=== PATIENT | female | born 1930 | race Caucasian/White ===

== ENCOUNTER → 2017-11-08 | Outpatient (CLI) | payer MEDICARE, OTHER ==
[~2017-11-08] MED LIST: ACTONEL5 MG PO; BENICAR5 MG PO; CALCIUM 500 MG1 EACH PO; CIPRO500 MG PO; COZAAR50 MG PO; FERROUS SULFAT325 MG PO; LO-DOSE ASPIRIN81 M1 PO; MACROBID100 MG PO; PROBIOTIC1 EAC1 PO; TRAMADOL HCL50 MG PO; VITAMIN B12-FO1 EACH PO; VITAMIN D2000 UNIT PO; VITAMIN E400 UNI6 PO; ZOFRAN4 MG PO
== END | disposition home or self-care (01) ==
LOC: CDC 10:42
DX: Z01.810 Encounter for preprocedural cardiovascular examination (principal); Z93.3 Colostomy status; I44.0 Atrioventricular block, first degree
CPT/HCPCS: 93000

== ENCOUNTER 2017-11-24 21:52 | Inpatient (IN) | payer OTHER ==
[~2017-11-24] VITALS: Ht 157.5 cm; Wt 54.5 kg
[2017-11-25 05:48] VITALS: BP 148/69
[2017-11-25 16:20] VITALS: BP 138/67
[2017-11-25 18:37] LABS: MCH 26.5 PG (29.0-34.0); MCHC 32.2 G/DL (30.0-36.0); MCV 82.3 FL (83-99); PLATELET COUNT 171 K/uL (156-360); RBC DIS.WIDTH-CV 13.6 % (11.8-14.6); RBC DIS.WIDTH-SD 40.8 % (39-53); RED BLOOD COUNT 3.89 M/uL (3.80-5.20); WHITE BLOOD COUNT 9.8 K/uL (4.1-10.2)
[2017-11-25 18:39] LABS: HEMOGLOBIN 10.3 G/DL (11.9-15.5)
[2017-11-25 18:59] LABS: TROP-I INTERPRETATION NEGATIVE; TROPONIN-I < 0.01 ng/mL (0.0-0.30)
[2017-11-25 21:09] VITALS: BP 128/65
[2017-11-25 23:24] VITALS: BP 114/61
[2017-11-26 04:55] VITALS: BP 116/55
[2017-11-26 05:52] LABS: HEMATOCRIT 32.4 % (36.0-46.0); HEMOGLOBIN 10.1 G/DL (11.9-15.5); MCH 26.2 PG (29.0-34.0); MCHC 31.2 G/DL (30.0-36.0); MCV 84.2 FL (83-99); PLATELET COUNT 185 K/uL (156-360); RBC DIS.WIDTH-CV 13.8 % (11.8-14.6); RBC DIS.WIDTH-SD 42.4 % (39-53); RED BLOOD COUNT 3.85 M/uL (3.80-5.20)
[2017-11-26 06:10] LABS: TROP-I INTERPRETATION NEGATIVE; TROPONIN-I < 0.01 ng/mL (0.0-0.30)
[2017-11-26 06:23] LABS: CHLORIDE 102 MEQ/L (99-109); CREATININE 0.7 MG/DL (0.6-1.3); GFR ESTIMATE (CALCULATED) > 59 mL/min/; GLUCOSE 130 mg/dL (70-99); MAGNESIUM 1.7 mg/dl (1.3-2.7); PHOSPHORUS 2.3 mg/dL (2.5-4.9); SODIUM 137 MEQ/L (136-147); UREA NITROGEN (BUN) 10 mg/dL (9-23)
[2017-11-26 08:12] VITALS: BP 115/54
[2017-11-26 11:47] VITALS: BP 110/54
[2017-11-26 16:22] VITALS: BP 123/53
[2017-11-26 19:25] VITALS: BP 132/59
[2017-11-27] VITALS (7 sets, daily range): BP systolic 117–143; BP diastolic 61–88
[2017-11-27 05:11] LABS: HEMATOCRIT 33.1 % (36.0-46.0); HEMOGLOBIN 10.3 G/DL (11.9-15.5); MCH 26.1 PG (29.0-34.0); MCHC 31.1 G/DL (30.0-36.0); MCV 83.8 FL (83-99); PLATELET COUNT 198 K/uL (156-360); RBC DIS.WIDTH-CV 13.9 % (11.8-14.6); RBC DIS.WIDTH-SD 43.3 % (39-53); RED BLOOD COUNT 3.95 M/uL (3.80-5.20); WHITE BLOOD COUNT 8.3 K/uL (4.1-10.2)
[2017-11-27 05:49] LABS: CHLORIDE 100 MEQ/L (99-109); CREATININE 0.6 MG/DL (0.6-1.3); GFR ESTIMATE (CALCULATED) > 59 mL/min/; GLUCOSE 125 mg/dL (70-99); POTASSIUM 3.8 MEQ/L (3.7-5.4); SODIUM 133 MEQ/L (136-147); UREA NITROGEN (BUN) 7 mg/dL (9-23)
[2017-11-28 03:15] VITALS: BP 170/71
[2017-11-28 05:19] LABS: HEMATOCRIT 29.9 % (36.0-46.0); HEMOGLOBIN 9.4 G/DL (11.9-15.5); MCHC 31.4 G/DL (30.0-36.0); MCV 82.8 FL (83-99); PLATELET COUNT 164 K/uL (156-360); RBC DIS.WIDTH-CV 14.1 % (11.8-14.6); RBC DIS.WIDTH-SD 42.8 % (39-53); RED BLOOD COUNT 3.61 M/uL (3.80-5.20); WHITE BLOOD COUNT 5.3 K/uL (4.1-10.2)
[2017-11-28 07:12] VITALS: BP 149/76
[2017-11-28 07:13] LABS: CHLORIDE 101 MEQ/L (99-109); CREATININE 0.6 MG/DL (0.6-1.3); GFR ESTIMATE (CALCULATED) > 59 mL/min/; GLUCOSE 117 mg/dL (70-99); POTASSIUM 3.6 MEQ/L (3.7-5.4); SODIUM 134 MEQ/L (136-147); UREA NITROGEN (BUN) 8 mg/dL (9-23)
[2017-11-28 11:01] VITALS: BP 146/69
[2017-11-28 15:30] VITALS: BP 143/72
[2017-11-28 19:00] VITALS: BP 140/66
[2017-11-28 23:30] VITALS: BP 139/75
[2017-11-29 03:00] VITALS: BP 154/72
[2017-11-29 05:52] LABS: HEMATOCRIT 30.6 % (36.0-46.0); HEMOGLOBIN 9.9 G/DL (11.9-15.5); MCH 26.4 PG (29.0-34.0); MCHC 32.4 G/DL (30.0-36.0); MCV 81.6 FL (83-99); PLATELET COUNT 208 K/uL (156-360); RBC DIS.WIDTH-CV 13.8 % (11.8-14.6); RBC DIS.WIDTH-SD 40.9 % (39-53); RED BLOOD COUNT 3.75 M/uL (3.80-5.20)
[2017-11-29 06:40] LABS: CHLORIDE 102 MEQ/L (99-109); CREATININE 0.5 MG/DL (0.6-1.3); GFR ESTIMATE (CALCULATED) > 59 mL/min/; GLUCOSE 110 mg/dL (70-99); MAGNESIUM 1.5 mg/dl (1.3-2.7); POTASSIUM 3.2 MEQ/L (3.7-5.4); SODIUM 138 MEQ/L (136-147); UREA NITROGEN (BUN) 7 mg/dL (9-23)
[2017-11-29 06:41] LABS: PHOSPHORUS 1.2 mg/dL (2.5-4.9)
[2017-11-29 08:00] VITALS: BP 133/70
[2017-11-29 11:40] VITALS: BP 128/70
[2017-11-29 12:54] LABS: APPEARANCE CLEAR ((CLEAR)); BILIRUBIN NEGATIVE; BLOOD SMALL; COLOR STRAW ((YELLOW)); GLUCOSE (STRIP) NEGATIVE; KETONES NEGATIVE; LEUKOCYTES NEGATIVE; NITRITE NEGATIVE; PROTEIN (STRIP) NEGATIVE; SPECIFIC GRAVITY 1.006 (1.000-1.030); UROBILINOGEN 0.2 MG/DL (0.2-1.0)
[2017-11-29 12:59] LABS: BACTERIA RARE /HPF; EPITHELIAL CELLS NONE SEEN /HPF; MUCUS TRACE /LPF; RED BLOOD CELLS 0-5 /HPF (0-5); UCUL ADDED? YES
[2017-11-29 15:00] VITALS: BP 128/87
[2017-11-29 19:45] VITALS: BP 156/73
[2017-11-30 03:03] VITALS: BP 143/67
[2017-11-30 06:22] LABS: HEMATOCRIT 28.6 % (36.0-46.0); HEMOGLOBIN 9.3 G/DL (11.9-15.5); MCH 26.2 PG (29.0-34.0); MCHC 32.5 G/DL (30.0-36.0); MCV 80.6 FL (83-99); PLATELET COUNT 216 K/uL (156-360); RBC DIS.WIDTH-CV 13.8 % (11.8-14.6); RBC DIS.WIDTH-SD 40.4 % (39-53); RED BLOOD COUNT 3.55 M/uL (3.80-5.20); WHITE BLOOD COUNT 6.1 K/uL (4.1-10.2)
[2017-11-30 06:31] LABS: CHLORIDE 100 MEQ/L (99-109); CREATININE 0.6 MG/DL (0.6-1.3); GFR ESTIMATE (CALCULATED) > 59 mL/min/; GLUCOSE 113 mg/dL (70-99); POTASSIUM 3.1 MEQ/L (3.7-5.4); SODIUM 136 MEQ/L (136-147); UREA NITROGEN (BUN) 6 mg/dL (9-23)
[2017-11-30 06:32] LABS: PHOSPHORUS 2.7 mg/dL (2.5-4.9)
[2017-11-30 07:45] VITALS: BP 131/58
[2017-11-30 12:00] VITALS: BP 128/70
[2017-11-30 15:30] VITALS: BP 135/72
[2017-11-30 18:36] VITALS: BP 130/61
[2017-11-30 23:06] VITALS: BP 159/70
[2017-12-01 03:36] VITALS: BP 128/58
[2017-12-01 07:17] LABS: MCH 26.3 PG (29.0-34.0); MCHC 32.1 G/DL (30.0-36.0); MCV 81.9 FL (83-99); PLATELET COUNT 213 K/uL (156-360); RBC DIS.WIDTH-SD 41.5 % (39-53); RED BLOOD COUNT 3.42 M/uL (3.80-5.20); WHITE BLOOD COUNT 6.6 K/uL (4.1-10.2)
[2017-12-01 08:11] LABS: CHLORIDE 102 MEQ/L (99-109); CREATININE 0.5 MG/DL (0.6-1.3); GFR ESTIMATE (CALCULATED) > 59 mL/min/; GLUCOSE 110 mg/dL (70-99); SODIUM 133 MEQ/L (136-147); UREA NITROGEN (BUN) 8 mg/dL (9-23)
[2017-12-01 08:40] VITALS: BP 115/56
[2017-12-01 12:54] VITALS: BP 106/58
[2017-12-01 16:47] VITALS: BP 110/54
[2017-12-01 19:55] VITALS: BP 112/63
[2017-12-01 23:43] VITALS: BP 135/61
[2017-12-02 05:49] LABS: HEMATOCRIT 27.1 % (36.0-46.0); HEMOGLOBIN 8.7 G/DL (11.9-15.5); MCHC 32.1 G/DL (30.0-36.0); MCV 80.9 FL (83-99); PLATELET COUNT 230 K/uL (156-360); RBC DIS.WIDTH-SD 41.1 % (39-53); RED BLOOD COUNT 3.35 M/uL (3.80-5.20)
[2017-12-02 06:18] LABS: CHLORIDE 102 MEQ/L (99-109); CREATININE 0.5 MG/DL (0.6-1.3); GFR ESTIMATE (CALCULATED) > 59 mL/min/; GLUCOSE 105 mg/dL (70-99); SODIUM 136 MEQ/L (136-147); UREA NITROGEN (BUN) 8 mg/dL (9-23)
[2017-12-02 08:25] VITALS: BP 115/58
[2017-12-02 11:41] VITALS: BP 99/52
[2017-12-02] MEDS ORDERED: TRAMADOL HCL50 MG PO (12:43)
== END 2017-12-02 16:05 | DRG 331 ==
LOC: ENRESERV 21:52 → CANRESERV 21:52 → 4EAST 11-25 05:18 → 2SOUTH 11-25 05:18 → ENRESERV 11-25 11:35 → 2SOUTH 11-25 15:48 → 4EAST 11-25 16:08 → 2SOUTH 11-25 16:08 → 4EAST 11-29 15:41 → ENRESERV 11-29 15:41 → 4EAST 11-29 15:41 → ENRESERV 11-30 12:54 → 3EAST 11-30 18:18 → ENPENDDIS 12-02 → 3EAST 12-02 16:05
PROVIDERS: Physician Assistant; Surgery; Thoracic Surgery (Cardiothoracic Vascular Surgery)
PROC: 0DSP0ZZ Reposition Rectum, Open Approach (ICD-10-PCS; principal; 2017-11-25)
PROC: 0DSL0ZZ Reposition Transverse Colon, Open Approach (ICD-10-PCS; principal; 2017-11-25)
PROC: 0DJD8ZZ Inspection of Lower Intestinal Tract, Via Natural or Artificial Opening Endoscopic (ICD-10-PCS; principal; 2017-11-25)
DX: D12.7 Benign neoplasm of rectosigmoid junction (principal); K62.1 Rectal polyp; K66.0 Peritoneal adhesions (postprocedural) (postinfection); M19.90 Unspecified osteoarthritis, unspecified site; I10 Essential (primary) hypertension; Z43.3 Encounter for attention to colostomy; Z85.42 Personal history of malignant neoplasm of other parts of uterus; Z85.820 Personal history of malignant melanoma of skin; Z88.6 Allergy status to analgesic agent; Z88.0 Allergy status to penicillin
CPT/HCPCS: 71045; 80048; 81003; 82948; 83735; 84100; 84484; 85027; 86850; 86900; 86901; 86920; 87086; 87493; 88304; 94799; J0330; J0692; J1100; J1170; J1335; J1644; J2001; J2270; J2405; J2710; J2795; J3010; J3475; J3480; J7040; J7050; Q0175; S0020

== ENCOUNTER 2017-12-10 10:07 | Emergency (ER) | payer OTHER ==
[~2017-12-10] VITALS: Ht 157.5 cm; Wt 51.9 kg
[2017-12-10 10:45] LABS: BASOPHIL (%) 0.5 % (0-1); EOSINOPHIL (%) 3.5 % (0-5); EOSINOPHIL COUNT 0.2 K/uL (0-0.3); HEMOGLOBIN 9.5 G/DL (11.9-15.5); IMMATURE GRANULOCYTE (%) 0.5 % (0.0-0.7); LYMPHOCYTE (%) 24.4 % (15-42); LYMPHOCYTE COUNT 1.5 K/uL (1.0-2.8); MCH 26.2 PG (29.0-34.0); MCHC 31.7 G/DL (30.0-36.0); MCV 82.9 FL (83-99); MONOCYTE (%) 13.2 % (3-12); MONOCYTE COUNT 0.8 K/uL (0-0.8); NEUTROPHIL (%) 57.9 % (45-76); NEUTROPHIL COUNT 3.5 K/uL (1.8-6.4); RBC DIS.WIDTH-CV 14.3 % (11.8-14.6); RBC DIS.WIDTH-SD 43.5 % (39-53); RED BLOOD COUNT 3.62 M/uL (3.80-5.20); WHITE BLOOD COUNT 6.1 K/uL (4.1-10.2)
[2017-12-10 10:50] LABS: PLATELET COUNT 339 K/uL (156-360)
[2017-12-10 10:53] LABS: CHLORIDE 104 mEq/L (99-109); SODIUM 137 mEq/L (136-147)
[2017-12-10 10:54] LABS: GLUCOSE 85 mg/dL (70-99)
[2017-12-10 10:58] LABS: CREATININE 0.7 mg/dL (0.6-1.3); GFR ESTIMATE (CALCULATED) > 59 mL/min/
[2017-12-10 10:59] LABS: UREA NITROGEN (BUN) 20 mg/dL (9-23)
[2017-12-10 11:06] LABS: TROP-I INTERPRETATION NEGATIVE; TROPONIN-I < 0.01 ng/mL (0.0-0.30)
[2017-12-10 14:08] VITALS: BP 137/64
== END 2017-12-10 14:10 | disposition home or self-care (01) ==
LOC: EME 10:07
PROVIDERS: Emergency Medicine
DX: R06.00 Dyspnea, unspecified (principal); J45.909 Unspecified asthma, uncomplicated; Z98.890 Other specified postprocedural states; M81.0 Age-related osteoporosis without current pathological fracture; Z85.42 Personal history of malignant neoplasm of other parts of uterus; Z90.710 Acquired absence of both cervix and uterus; Z87.891 Personal history of nicotine dependence; Z88.0 Allergy status to penicillin
CPT/HCPCS: 71046; 71275; 80048; 84484; 85025; 85379; 87502; 93005; 99281; 99285